=== PATIENT | male | born 1985 | race Caucasian/White ===

== ENCOUNTER 2017-09-29 15:31 | Emergency (ER) | payer OTHER ==
[~2017-09-29] VITALS: Ht 182.9 cm; Wt 83.9 kg
--- NOTE | ~2017-09-29 | PROC ---
[facility] [address] [place] [address] PROCEDURE REPORT Name: SID KU [facility] [id number] Admission: 09/29/17 Attend Phys: Discharge: 09/29/17 Date of : 87 Report #: [id number] THIS REPORT FOR: //name// For GI report, please see the Provation report in [employer] 7 content. By: [id number] Records Staff LIZZ /[email or web address]
[2017-09-29] MEDS ORDERED: CLARITIN5 MG PO (15:56)
[2017-09-29] MEDS ORDERED: NORCO 5-325 TA1 EACH PO (17:00)
[2017-09-29 18:13] VITALS: BP 108/75
== END 2017-09-29 18:17 | disposition home or self-care (01) ==
LOC: M.ERS 15:31
DX: T18.128A Food in esophagus causing other injury, initial encounter (principal); X58.XXXA Exposure to other specified factors, initial encounter; Y93.89 Activity, other specified; Y92.89 Other specified places as the place of occurrence of the external cause; Y99.8 Other external cause status